=== PATIENT | male | born 1935 | race Caucasian/White ===

== ENCOUNTER 2016-12-24 06:31 | Day surgery (SDC) | payer OTHER ==
[2016-12-24] MEDS ORDERED: LR 1,000 ML ONE (07:05)
[2016-12-24] MEDS ORDERED: DIPRIVAN 1% ONE ×2 (09:13→19:01)
[2016-12-24] MEDS ORDERED: MYLICON DROPS (DOSE) MISC ONE (09:18)
[2016-12-24] MEDS ORDERED: XYLOCAINE-MPF 2% ONE (10:30)
[2016-12-24 10:58] VITALS: BP 147/90
--- NOTE | 2016-12-24 13:44 | OPERATIVE NOTE ---
PROCEDURE DATE: 12/24/2016 REFERRING PHYSICIAN: Dr. Esmer Fitzpatrick MD. INDICATION FOR PROCEDURE: 1. Dysphagia. 2. New diarrhea alternating with chronic constipation. 3. Change in bowel habits. PROCEDURE PERFORMED: Esophagogastroduodenoscopy with biopsy. CONSENT: Informed consent was obtained from the patient prior to the procedure. The risks, benefits, and alternatives were discussed. MEDICATION: The patient received monitored anesthesia care. PERFORMING PHYSICIAN: Haydee Yi MD. ASSISTANTS: 1. [facility] 2. Lisandra Diane RN. 3. Maryann Aviles CRNA. 4. Observer: Franca Basurto [facility] director nursing service. COMPLICATIONS: There were no complications. ESTIMATED BLOOD LOSS: Less than 1 mL. SPECIMENS REMOVED: 1. Duodenal biopsies. 2. Gastric biopsies. FINDINGS: After sedation was achieved, the upper endoscope was inserted to the 2nd portion of the duodenum. The hypopharynx and tubular esophagus appeared normal to the distal esophagus. At the GE junction, there was mild erythema with a few scattered erosions consistent with grade A erosive esophagitis. The GE junction was measured at 40 cm from the incisors. There was a hiatal hernia that spanned from 40-43 cm. There was greater than 150 mL of retained bilious fluid in the fundus. There was cortes erosive gastritis with an antral predominance. The pylorus appeared normal but there was active bile reflux throughout the procedure. On retroflexed view, there were a few fundic gland polyps in the aforementioned gastritis. There were no other findings. In the duodenal bulb, the mucosa appeared grossly normal. It was also normal in the 2nd portion of the duodenum. Because of the change in bowel habits, biopsies were taken from the duodenum and from the gastric mucosa. After biopsies were taken, the lumen was decompressed and the scope was removed without incident. IMPRESSION: 1. Grade A erosive esophagitis. 2. Hiatal hernia. 3. Retained bilious secretions in the fundus. 4. Erosive gastritis. 5. A few fundic gland polyps. 6. Active bile reflux through the pylorus. 7. Normal-appearing duodenum. RECOMMENDATION: 1. Await biopsy results. 2. The patient is currently on omeprazole but only taking 20 mg per day. I will increase the dose to 40 mg per day to help reduce the amount of acid produced. 3. Continue Zantac 150 at bedtime as he reports this is helping his nighttime reflux. 4. I will schedule a gastric emptying as there was gastric stasis on EGD. 5. We will proceed with a colonoscopy as previously scheduled. 6. Return to clinic will be based on the colonoscopy findings.
--- NOTE | 2016-12-24 13:56 | OPERATIVE NOTE ---
PROCEDURE DATE: 12/24/2016 REFERRING PHYSICIAN: Esmer Fitzpatrick MD INDICATIONS FOR PROCEDURE: 1. Change in bowel habits. 2. Diarrhea alternating with chronic constipation. 3. History of colon polyps. 4. New fecal incontinence. PROCEDURES PERFORMED: 1. Colonoscopy with polypectomy. 2. Colonoscopy with biopsy. CONSENT: Informed consent was obtained from the patient prior to the procedure. The risks, benefits, and alternatives were discussed. MEDICATION: The patient received monitored anesthesia care. PERFORMING PHYSICIAN: Haydee Yi MD ASSISTANTS: 1. [facility] 2. Lisandra Diane RN. 3. Arpita Aviles CRNA. 4. Arpan Brown MD (Anesthesia). COMPLICATIONS: There were no complications. ESTIMATED BLOOD LOSS: Less than 1 mL. SPECIMENS REMOVED: In jar #3, random colon biopsies. In jar #4, hepatic flexure polyp. In #5, rectal polyps x2. CECAL INTUBATION TIME: 10 minutes. WITHDRAWAL TIME: 20 minutes. PREP QUALITY: Fair to poor. FINDINGS: After the EGD was performed, the patient was repositioned. The pediatric colonoscope was inserted to the terminal ileum. The terminal ileum, ileocecal valve, and appendiceal orifice appeared endoscopically normal. In the ascending colon, there was scattered diverticulosis with no evidence of diverticulitis. There was a 5 mm polyp at the hepatic flexure that was removed using snare cautery. There was extensive diverticulosis beginning in the transverse colon and including the descending, sigmoid, and rectosigmoid colon. The mucosa in the left colon appeared grossly normal, except for the aforementioned diverticulosis. In the rectum, there were grade 1 internal hemorrhoids with no stigmata of bleeding. In the rectum, there were 2 small sessile polyps, approximately 3-4 mm in size, that were removed by cold biopsy forceps. On retroflexed view, there were medium to large external hemorrhoids with evidence of thrombosis and oozing. There was spontaneous hemostasis while observing the hemorrhoids. After the exam was complete, the lumen was decompressed and the scope was removed without incident. IMPRESSION: 1. Pandiverticulosis. 2. A 5 mm sessile polyp at the hepatic flexure. 3. Grade 1 internal hemorrhoids. 4. Rectal polyps. 5. Medium to large external hemorrhoids with thrombosis and oozing. RECOMMENDATIONS: 1. Await biopsy results. 2. The patient complains of new fecal incontinence. It should be noted that his anal sphincter tone is markedly decreased on digital exam in clinic prior to the colonoscopy as well as today. Therefore, I will schedule the patient for anorectal manometry. 3. Anusol HC suppositories, not covered by the patient's insurance. I will begin with Preparation-H hemorrhoidal suppository. If this is not beneficial, I will give him a trial of Proctofoam and/or Analpram. 4. We will have the patient return to clinic after testing. 5. Please see the EGD report for additional details.
== END 2016-12-24 11:11 | disposition home or self-care (01) ==
LOC: ENDO 06:31
PROVIDERS: ATTEND Internal Medicine Gastroenterology
DX: K62.1 Rectal polyp (principal); D12.3 Benign neoplasm of transverse colon; K57.30 Diverticulosis of large intestine without perforation or abscess without bleeding; K64.0 First degree hemorrhoids; K64.5 Perianal venous thrombosis; K44.9 Diaphragmatic hernia without obstruction or gangrene; K29.00 Acute gastritis without bleeding; K20.9 Esophagitis, unspecified
CPT/HCPCS: 88305; 88312; 88313; J7120